=== PATIENT | male | born 1955 | race Asian ===

== ENCOUNTER 2019-11-11 12:21 | Emergency (ER) | payer BC ==
[~2019-11-11] VITALS: Ht 177.8 cm; Wt 77.3 kg
[~2019-11-11 12:21] MED LIST: DSS100 PO; LEVO-72 PO; PERCT PO
[2019-11-11 13:34] LABS: HEMATOCRIT 39.8 % (41-53); HEMOGLOBIN 13.1 g/dL (13.5-17.5); MEAN CORPUSCULAR HEMOGLOBIN 31.4 pg (26.0-34.0); MEAN CORPUSCULAR HGB CONC 32.9 G/dL (31.0-37.0); MEAN CORPUSCULAR VOLUME 96 fL (80-100); RED BLOOD CELL COUNT(AUTO) 4.17 MIL/uL (4.50-5.90); RED CELL DISTRIBUTION WIDTH 14.6 % (11.5-14.5)
[2019-11-11 13:45] LABS: CALCIUM, TOTAL 9.1 mg/dL (8.8-10.5); CREATININE 1.58 mg/dL (0.60-1.30); POTASSIUM 3.9 mmol/L (3.5-5.1)
[2019-11-11 13:52] LABS: ALBUMIN 2.5 g/dL (3.4-5.0); TOTAL PROTEIN, SERUM 7.1 g/dL (6.4-8.2)
[2019-11-11 14:36] LABS: PLATELET COUNT (AUTO) 79 K/uL (150-450)
[2019-11-11 14:48] LABS: BAND NEUTROPHILS % (MANUAL) 13 % (0-5); LYMPHOCYTES % (MANUAL) 3 % (22-44); METAMYELOCYTES % 2 % (0-0); MONOCYTES % (MANUAL) 5 % (2-9); SEGMENTED NEUTROPHILS % 77 % (40-70)
[2019-11-11 15:00] LABS: APPEARANCE,URINE CLOUDY (CLEAR); GLUCOSE, URINE (UA) NEGATIVE (NEGATIVE); KETONES,URINE 15 mg/dL (NEGATIVE); LEUKOCYTE ESTERASE ,URINE SMALL (NEGATIVE); OCCULT BLOOD,URINE NEGATIVE (NEGATIVE); PROTEIN,URINE POS 1+ (NEGATIVE)
[2019-11-11] MEDS ORDERED: SODIUM CHLORIDE 0.9% 2,300 ML IV ONE (15:01)
[2019-11-11] MEDS ORDERED: BARIUM SULFATE 0.1% SUSPENSION 450 ML BOTTLE PO ONE (15:15)
[2019-11-11 15:19] LABS: BILIRUBIN,URINE PRELIM. POSITIVE (NEGATIVE)
[2019-11-11 15:22] LABS: BACTERIA,URINE Few /HPF (None Seen); NITRATE,URINE NEGATIVE (NEGATIVE); RBC,URINE 0-2 /HPF (0-2); SQUAMOUS EPITHELIAL CELL,UR Few /LPF (None Seen); TRANSITIONAL EPI CELLS,URINE Few /LPF (None Seen)
[2019-11-11 15:23] LABS: HYALINE CASTS, URINE 0-2 /LPF (None Seen)
[2019-11-11] MEDS ORDERED: SODIUM CHLORIDE 0.9% 100 ML ONE (15:37)
[2019-11-11] MEDS ORDERED: IOVERSOL 350 MG/ML 100 ML VIAL ONE (15:38)
[2019-11-11 15:57] LABS: PROTHROMBIN TIME 10.7 SEC (9.4-11.6)
[2019-11-11 16:05] LABS: LACTIC ACID 2.3 mmol/L (0.4-2.0)
[2019-11-11] MEDS ORDERED: PIPERACILLIN/TAZO 3.375 GM/D5W 50 ML IV ONE (16:45)
[2019-11-11] MEDS ORDERED: DOCU-275 PO (18:05)
[2019-11-11] MEDS ORDERED: MORPHINE SULFATE 4 MG/ML SYRINGE IVP ONE (18:15)
[2019-11-11] MEDS ORDERED: ONDANSETRON HCL 4 MG/2 ML VIAL IVP ONE (18:15)
[2019-11-11 21:20] VITALS: BP 107/69
== END 2019-11-11 22:06 | disposition short-term general hospital (02) ==
LOC: EMS 12:24
DX: K72.90 Hepatic failure, unspecified without coma (principal); K59.00 Constipation, unspecified
CPT/HCPCS: 36415; 74022; 74177; 80053; 81001; 83605; 83690; 84145; 84484; 85025; 85610; 85730; 87040; 87086; 87205; 96365; 96375; 99285; J2270; J2405; J2543; J7030; J7050; Q9967